=== PATIENT | male | born 1960 | race Caucasian/White ===

== ENCOUNTER 2021-08-02 21:34 | Inpatient (IN) ==
[2021-08-03] MEDS ORDERED: Melatonin 3 MG TABLET PO PRN (04:48)
[2021-08-03] MEDS ORDERED: *HR* Promethazine 25 MG/ML VIAL IM PRN (04:48)
[2021-08-03] MEDS ORDERED: Ondansetron 4 MG/2 ML VIAL IVP PRN (04:48)
[2021-08-03] MEDS ORDERED: Naloxone 0.4 MG/ML INJ IVP PRN (04:48)
[2021-08-03] MEDS ORDERED: Acetaminophen 325 MG TABLET PO PRN (04:48)
[2021-08-03] MEDS ORDERED: *HR* Dextrose 50 % in Water (Syg) 50 ML SYRINGE IVP PRN (04:50)
[2021-08-03] MEDS ORDERED: D5% in Water 1,000 ML IVC PRN (04:50)
[2021-08-03] MEDS ORDERED: Dextrose Gel 15 GM/37.5 ML TUBE PO PRN ×2 (04:50)
[2021-08-03] MEDS: Ringers Solution, Lactated 1,000 ML IVC SCH ×2 (06:41→17:26)
[2021-08-03] MEDS: Pantoprazole 40 MG VIAL IVP SCH ×2 (06:42→18:14)
[2021-08-03] MEDS: Insulin LISPRO 300 UNITS/3 ML VIAL SUBQ SCH ×4 (06:44→23:59)
[2021-08-03 07:13] LABS: Basophils % 0.2 %; Eosinophils # 0.2 K/mcL (0.0-0.6); Eosinophils % 1.6 %; Hematocrit 29.1 % (37.5-50.1); Hemoglobin 9.6 g/dL (12.9-16.9); Immature Granulocytes % 0.5 % (0-4); Lymphocytes # 1.9 K/mcL (0.6-4.6); Mean Corpuscular Hemoglobin 30.1 pg (28.0-33.3); Mean Corpuscular Volume 91.2 fL (83.0-100.0); Mean Platelet Volume 10.8 fL (9.4-12.4); Monocytes % 7.7 %; Neutrophils # 9.3 K/mcL (1.6-8.9); Nucleated Red Blood Cells 0.2 /100 WBC (0); Platelet Count 216 K/mcL (140-400); Red Blood Count 3.19 M/mcL (4.19-5.50); Red Cell Distribution Width 13.2 % (11.5-14.5); White Blood Count 12.4 K/mcL (4.3-11.1)
[2021-08-03 07:26] LABS: INR 1.2; Prothrombin Time 13.1 Seconds (9.4-12.1)
[2021-08-03] MEDS: Piperacillin/Tazobactam 3.375 GM in 0.9 % Sodium Chloride Mini Bag 100 ML IVPB SCH ×3 (08:35→23:14)
[2021-08-03 08:54] LABS: Albumin 3.6 g/dL (3.5-5.7); Albumin/Globulin Ratio 1.3 (1.1-2.2); Bilirubin,Total 0.4 mg/dL (0.3-1.0); Globulin 2.7 g/dL (2.4-3.5); Potassium 3.2 mEq/L (3.5-5.1); Total Protein 6.3 g/dL (6.4-8.9)
[2021-08-03 12:32] LABS: Bacteria,Urine Few per hpf (None-Few); Bilirubin,Urine Negative (Negative); Blood,Urine Negative (Negative); Clarity,Urine Clear (Clear); Color,Urine Light-Yellow (Yellow); Glucose,Urine (UA) Normal (Normal); Ketones,Urine Negative (Negative); Leukocyte Esterase,Urine Small (Negative); Mucus,Urine Few per lpf (None-Few); Nitrite,Urine Negative (Negative); PH,Urine 5.5 pH Units (5.0-8.0); Protein,Urine Trace mg/dL (Neg-Trace); RBC,Urine 0-3 per hpf (0-3); Urobilinogen,Urine Normal (Normal); WBC,Urine 0-3 per hpf (0-3)
[2021-08-04] MEDS: Ringers Solution, Lactated 1,000 ML IVC SCH (01:54)
[2021-08-04 05:59] LABS: Basophils % 0.4 %; Eosinophils # 0.3 K/mcL (0.0-0.6); Eosinophils % 4.5 %; Hematocrit 26.9 % (37.5-50.1); Hemoglobin 8.9 g/dL (12.9-16.9); Immature Granulocytes % 0.4 % (0-4); Lymphocytes # 1.6 K/mcL (0.6-4.6); Lymphocytes % 22.4 %; Mean Corpuscular HGB Conc 33.1 g/dL (31.6-35.5); Mean Corpuscular Hemoglobin 30.3 pg (28.0-33.3); Mean Corpuscular Volume 91.5 fL (83.0-100.0); Mean Platelet Volume 10.6 fL (9.4-12.4); Monocytes # 0.6 K/mcL (0.0-1.3); Monocytes % 8.4 %; Neutrophils # 4.7 K/mcL (1.6-8.9); Platelet Count 174 K/mcL (140-400); Red Blood Count 2.94 M/mcL (4.19-5.50); Red Cell Distribution Width 13.2 % (11.5-14.5); Segmented Neutrophils % 63.9 %; White Blood Count 7.3 K/mcL (4.3-11.1)
[2021-08-04 06:23] LABS: Calcium 8.9 mg/dL (8.6-10.3); Potassium 3.3 mEq/L (3.5-5.1)
[2021-08-04] MEDS: Insulin LISPRO 300 UNITS/3 ML VIAL SUBQ SCH ×2 (06:27→12:41)
[2021-08-04] MEDS: Pantoprazole 40 MG VIAL IVP SCH ×2 (06:35→17:26)
[2021-08-04] MEDS ORDERED: Ipratropium/Albuterol Neb 3 ML IH PRN (10:20)
[2021-08-04] MEDS ORDERED: Ringers Solution, Lactated 1,000 ML IVC SCH (10:21)
[2021-08-04] MEDS ORDERED: Lidocaine -MPF 2% 5 ML VIAL ONE (10:45)
[2021-08-04] MEDS ORDERED: *HR* FentaNYL (PF) 100 MCG/2 ML VIAL ONE (10:45)
[2021-08-04] MEDS ORDERED: *HR* Propofol 200 MG/20 ML VIAL IVP ONE (10:45)
[2021-08-04] MEDS: PARoxetine 20 MG TABLET PO SCH (12:39)
[2021-08-04] MEDS: carvediloL 6.25 MG TABLET PO SCH ×2 (12:40→17:26)
[2021-08-04] MEDS: Piperacillin/Tazobactam 3.375 GM in 0.9 % Sodium Chloride Mini Bag 100 ML IVPB SCH ×2 (12:40→17:26)
[2021-08-04] MEDS: Aspirin Enteric Coated 81 MG Tablet PO SCH (12:40)
[2021-08-04 17:40] LABS: Protein/Creatinine Ratio,Urine 0.24 mg/mg (0.00-0.20)
[2021-08-04] MEDS: 0.9 % Sodium Chloride 1,000 ML IVC SCH (23:24)
[2021-08-05 03:34] LABS: Basophils % 0.3 %; Eosinophils # 0.4 K/mcL (0.0-0.6); Eosinophils % 4.9 %; Hematocrit 24.2 % (37.5-50.1); Immature Granulocytes % 0.4 % (0-4); Lymphocytes # 1.8 K/mcL (0.6-4.6); Lymphocytes % 24.9 %; Mean Corpuscular HGB Conc 33.1 g/dL (31.6-35.5); Mean Corpuscular Hemoglobin 30.5 pg (28.0-33.3); Mean Corpuscular Volume 92.4 fL (83.0-100.0); Mean Platelet Volume 10.7 fL (9.4-12.4); Monocytes # 0.6 K/mcL (0.0-1.3); Monocytes % 8.1 %; Neutrophils # 4.4 K/mcL (1.6-8.9); Platelet Count 158 K/mcL (140-400); Red Blood Count 2.62 M/mcL (4.19-5.50); Red Cell Distribution Width 13.2 % (11.5-14.5); Segmented Neutrophils % 61.4 %; White Blood Count 7.2 K/mcL (4.3-11.1)
[2021-08-05 03:48] LABS: Calcium 8.4 mg/dL (8.6-10.3); Potassium 3.4 mEq/L (3.5-5.1)
[2021-08-05] MEDS ORDERED: Piperacillin/Tazobactam 3.375 GM in 0.9 % Sodium Chloride Mini Bag 100 ML IVPB SCH (04:00)
[2021-08-05] MEDS: Pantoprazole 40 MG VIAL IVP SCH (05:30)
[2021-08-05] MEDS ORDERED: Piperacillin/Tazobactam 3.375 GM VIAL ONE (05:36)
[2021-08-05] MEDS: Insulin LISPRO 300 UNITS/3 ML VIAL SUBQ SCH ×4 (07:48→20:06)
[2021-08-05] MEDS: carvediloL 6.25 MG TABLET PO SCH ×2 (07:54→17:28)
[2021-08-05] MEDS: NIFEdipine XL (24 HR) 30 MG TAB.ER.24 PO SCH (07:54)
[2021-08-05] MEDS: PARoxetine 20 MG TABLET PO SCH (07:55)
[2021-08-05] MEDS: Aspirin Enteric Coated 81 MG Tablet PO SCH (07:55)
[2021-08-05] MEDS ORDERED: levoFLOXacin 750 MG TABLET PO SCH (09:00)
[2021-08-05] MEDS: 0.9 % Sodium Chloride 1,000 ML IVC SCH (09:56)
[2021-08-05 16:30] LABS: Hematocrit 28.6 % (37.5-50.1); Hemoglobin 9.4 g/dL (12.9-16.9)
[2021-08-05] MEDS: *HR* Ticagrelor 90 MG TABLET PO SCH (20:08)
[2021-08-06 04:16] LABS: Estimated Average Glucose 154 mg/dl
[2021-08-06] MEDS ORDERED: *HR* Labetalol 20 MG/4 ML SYRINGE IVP ONE (06:21)
[2021-08-06 06:48] VITALS: O2SAT 95
[2021-08-06] MEDS: Insulin LISPRO 300 UNITS/3 ML VIAL SUBQ SCH ×2 (07:34→11:37)
[2021-08-06] MEDS: NIFEdipine XL (24 HR) 30 MG TAB.ER.24 PO SCH (09:30)
[2021-08-06] MEDS: carvediloL 6.25 MG TABLET PO SCH (09:30)
[2021-08-06] MEDS: Aspirin Enteric Coated 81 MG Tablet PO SCH (09:30)
[2021-08-06] MEDS: PARoxetine 20 MG TABLET PO SCH (09:30)
[2021-08-06] MEDS: *HR* Ticagrelor 90 MG TABLET PO SCH (09:40)
[2021-08-06 11:11] VITALS: BP 145/71; PULSE 69; TEMP 97.9
== END 2021-08-06 14:34 | disposition home health service (06) | DRG 241 ==
LOC: 3ANU → SUATTDRO 08-04 15:41
PROVIDERS: ADMIT Family Medicine; ATTEND Internal Medicine
PROC: ENDOEBX (2021-08-04 14:30)

== ENCOUNTER 2021-08-07 16:29 | Inpatient (IN) ==
[2021-08-07] MEDS ORDERED: 0.9 % Sodium Chloride 1,000 ML IVC ONE (16:41)
[2021-08-07 19:28] LABS: Basophils % 0.2 %; Eosinophils % 0.2 %; Hematocrit 20.4 % (37.5-50.1); Lymphocytes # 1.7 K/mcL (0.6-4.6); Lymphocytes % 9.9 %; Mean Corpuscular HGB Conc 33.8 g/dL (31.6-35.5); Mean Corpuscular Hemoglobin 31.2 pg (28.0-33.3); Mean Corpuscular Volume 92.3 fL (83.0-100.0); Mean Platelet Volume 10.9 fL (9.4-12.4); Monocytes % 5.5 %; Neutrophils # 14.5 K/mcL (1.6-8.9); Nucleated Red Blood Cells 0.2 /100 WBC (0); Platelet Count 210 K/mcL (140-400); Red Blood Count 2.21 M/mcL (4.19-5.50); Red Cell Distribution Width 13.8 % (11.5-14.5); Segmented Neutrophils % 82.2 %
[2021-08-07 19:32] LABS: Hemoglobin 6.9 g/dL (12.9-16.9); White Blood Count 17.6 K/mcL (4.3-11.1)
[2021-08-07 19:42] LABS: INR 1.2; Prothrombin Time 13.7 Seconds (9.4-12.1)
[2021-08-07 19:45] LABS: Activated Partial Thrombo Time 25.1 Seconds (26.0-36.0)
[2021-08-07 19:56] LABS: Troponin I 0.05 ng/mL (< 0.04)
[2021-08-07 20:05] LABS: Albumin 3.3 g/dL (3.5-5.7); Albumin/Globulin Ratio 1.4 (1.1-2.2); Bilirubin,Total 0.3 mg/dL (0.3-1.0); Calcium 8.3 mg/dL (8.6-10.3); Globulin 2.3 g/dL (2.4-3.5); Magnesium 1.5 mg/dL (1.6-2.6); Potassium 3.7 mEq/L (3.5-5.1); Total Protein 5.6 g/dL (6.4-8.9)
[2021-08-07] MEDS ORDERED: Isovue-370 500 ML BOTTLE IVP ONE (20:21)
[2021-08-07] MEDS ORDERED: 0.9 % Sodium Chloride 250 ML ONE (20:44)
[2021-08-07] MEDS ORDERED: Ringers Solution, Lactated 1,000 ML ONE (21:41)
[2021-08-07] MEDS ORDERED: Albumin Human 5% 12.5 GM/250 ML IV.SOLN IVC SCH (22:00)
[2021-08-07] MEDS ORDERED: Naloxone 0.4 MG/ML INJ IVP PRN (22:10)
[2021-08-07] MEDS ORDERED: Melatonin 3 MG TABLET PO PRN (22:10)
[2021-08-07] MEDS ORDERED: Ringers Solution, Lactated 500 ML IVC ONE (22:41)
[2021-08-07 22:43] LABS: Hematocrit 19.7 % (37.5-50.1); Hemoglobin 6.5 g/dL (12.9-16.9); Mean Corpuscular Hemoglobin 30.5 pg (28.0-33.3); Mean Corpuscular Volume 92.5 fL (83.0-100.0); Mean Platelet Volume 10.4 fL (9.4-12.4); Platelet Count 173 K/mcL (140-400); Red Blood Count 2.13 M/mcL (4.19-5.50); Red Cell Distribution Width 14.6 % (11.5-14.5); White Blood Count 18.9 K/mcL (4.3-11.1)
[2021-08-07 22:51] LABS: INR 1.3
[2021-08-07 22:53] LABS: Activated Partial Thrombo Time 26.5 Seconds (26.0-36.0)
[2021-08-07] MEDS ORDERED: *HR* Propofol 200 MG/20 ML VIAL IVP ONE (23:00)
[2021-08-07] MEDS ORDERED: *HR* Midazolam HCl 2 MG/2 ML VIAL ONE (23:00)
[2021-08-07] MEDS ORDERED: Lidocaine -MPF 2% 5 ML VIAL ONE (23:01)
[2021-08-07] MEDS ORDERED: *HR* Succinylcholine 200 MG/10 ML VIAL IVP ONE (23:04)
[2021-08-07] MEDS ORDERED: *HR* Midazolam HCl 5 MG/5 ML VIAL IVP ONE (23:05)
[2021-08-07] MEDS ORDERED: *HR* Dextrose 50 % in Water (Syg) 50 ML SYRINGE IVP PRN (23:11)
[2021-08-07] MEDS ORDERED: D5% in Water 1,000 ML IVC PRN (23:11)
[2021-08-07] MEDS ORDERED: Dextrose Gel 15 GM/37.5 ML TUBE PO PRN ×2 (23:11)
[2021-08-07 23:23] LABS: Troponin I 0.06 ng/mL (< 0.04)
[2021-08-07] MEDS ORDERED: *HR* Rocuronium Bromide 50 MG/5 ML VIAL ONE (23:45)
[2021-08-07 23:54] LABS: Albumin/Globulin Ratio 1.8 (1.1-2.2); Bilirubin,Direct 0.1 mg/dL (0.0-0.2); Bilirubin,Indirect 0.2 mg/dL (0.0-1.0); Bilirubin,Total 0.3 mg/dL (0.3-1.0); Calcium 7.6 mg/dL (8.6-10.3); Globulin 1.7 g/dL (2.4-3.5); Potassium 3.6 mEq/L (3.5-5.1); Total Protein 4.7 g/dL (6.4-8.9)
[2021-08-08] MEDS ORDERED: *HR* HYDROMORPHONE 2 MG/ML VIAL ONE (00:12)
[2021-08-08] MEDS ORDERED: Artificial Tears SOLN 15 ML BOTTLE BOTH EYES PRN (00:26)
[2021-08-08] MEDS ORDERED: 0.9 % Sodium Chloride 500 ML ONE (00:34)
[2021-08-08 01:01] LABS: Hematocrit 18.9 % (37.5-50.1); Hemoglobin 6.4 g/dL (12.9-16.9); Mean Corpuscular HGB Conc 33.9 g/dL (31.6-35.5); Mean Corpuscular Hemoglobin 31.2 pg (28.0-33.3); Mean Corpuscular Volume 92.2 fL (83.0-100.0); Platelet Count 150 K/mcL (140-400); Red Blood Count 2.05 M/mcL (4.19-5.50); Red Cell Distribution Width 14.6 % (11.5-14.5); White Blood Count 17.1 K/mcL (4.3-11.1)
[2021-08-08] MEDS: FentaNYL (PF) 1,000 MCG/100 ML IV.SOLN IVC SCH ×2 (01:09→10:12)
[2021-08-08] MEDS: Pantoprazole 40 MG VIAL IVP SCH ×2 (01:30→05:05)
[2021-08-08] MEDS: cefTRIAXone 1,000 MG in 0.9 % Sodium Chloride Mini Bag 100 ML IVPB SCH ×2 (01:30→07:45)
[2021-08-08 02:37] LABS: ABG Base Excess -4 mEq/L (-2 to 3); ABG HCO3 23 mEq/L (21-27); ABG Oxygen Saturation 100 % (95-98); ABG PCO2 52 mmHg (35-45); ABG PH 7.26 pH Units (7.32-7.45); ABG PO2 343 mmHg (85-104); ABG TCO2 25 mEq/L (20-26); Blood Gas Modality ASSIST CONTROL; Blood Gas VT 500 cc
[2021-08-08] MEDS: Artificial Tears SOLN 15 ML BOTTLE BOTH EYES SCH ×5 (03:03→20:43)
[2021-08-08 03:48] LABS: Basophils % 0.2 %; Eosinophils % 0.1 %; Hematocrit 22.3 % (37.5-50.1); Hemoglobin 7.3 g/dL (12.9-16.9); Immature Granulocytes % 2.9 % (0-4); Lymphocytes # 1.5 K/mcL (0.6-4.6); Lymphocytes % 8.9 %; Mean Corpuscular HGB Conc 32.7 g/dL (31.6-35.5); Mean Corpuscular Volume 91.8 fL (83.0-100.0); Mean Platelet Volume 10.2 fL (9.4-12.4); Monocytes # 1.1 K/mcL (0.0-1.3); Monocytes % 6.1 %; Neutrophils # 14.1 K/mcL (1.6-8.9); Nucleated Red Blood Cells 0.2 /100 WBC (0); Platelet Count 130 K/mcL (140-400); Red Blood Count 2.43 M/mcL (4.19-5.50); Red Cell Distribution Width 14.4 % (11.5-14.5); Segmented Neutrophils % 81.8 %; White Blood Count 17.2 K/mcL (4.3-11.1)
[2021-08-08 04:06] LABS: Calcium 7.7 mg/dL (8.6-10.3)
[2021-08-08 04:49] LABS: ABG Base Excess -5 mEq/L (-2 to 3); ABG HCO3 21 mEq/L (21-27); ABG Oxygen Saturation 97 % (95-98); ABG PCO2 39 mmHg (35-45); ABG PH 7.34 pH Units (7.32-7.45); ABG PO2 97 mmHg (85-104); ABG TCO2 22 mEq/L (20-26); Blood Gas Modality ASSIST CONTROL; Blood Gas VT 550 cc
[2021-08-08 05:42] LABS: Hematocrit 21.4 % (37.5-50.1)
[2021-08-08] MEDS: Chlorhexidine Rinse 15 ML MOUTHWASH MM SCH ×2 (07:45→20:43)
[2021-08-08] MEDS: Insulin LISPRO 300 UNITS/3 ML VIAL SUBQ SCH ×5 (07:58→20:44)
[2021-08-08] MEDS: Piperacillin/Tazobactam 3.375 GM in 0.9 % Sodium Chloride Mini Bag 100 ML IVPB SCH ×3 (09:30→23:47)
[2021-08-08 10:39] LABS: Hematocrit 20.4 % (37.5-50.1); Hemoglobin 6.7 g/dL (12.9-16.9)
[2021-08-08] MEDS: Pantoprazole 40 MG in 0.9 % Sodium Chloride Mini Bag 100 ML IVC SCH ×3 (13:21→23:36)
[2021-08-08 16:09] LABS: Hematocrit 20.5 % (37.5-50.1); Hemoglobin 6.9 g/dL (12.9-16.9)
[2021-08-08 20:27] LABS: Basophils # 0.1 K/mcL (0.0-0.2); Basophils % 0.4 %; Eosinophils # 0.5 K/mcL (0.0-0.6); Eosinophils % 3.7 %; Hematocrit 22.1 % (37.5-50.1); Hemoglobin 7.5 g/dL (12.9-16.9); Immature Granulocytes % 2.4 % (0-4); Lymphocytes # 2.4 K/mcL (0.6-4.6); Lymphocytes % 16.8 %; Mean Corpuscular HGB Conc 33.9 g/dL (31.6-35.5); Mean Corpuscular Hemoglobin 30.6 pg (28.0-33.3); Mean Corpuscular Volume 90.2 fL (83.0-100.0); Mean Platelet Volume 10.3 fL (9.4-12.4); Monocytes % 6.8 %; Nucleated Red Blood Cells 0.3 /100 WBC (0); Platelet Count 109 K/mcL (140-400); Red Blood Count 2.45 M/mcL (4.19-5.50); Red Cell Distribution Width 14.9 % (11.5-14.5); Segmented Neutrophils % 69.9 %; White Blood Count 14.3 K/mcL (4.3-11.1)
[2021-08-08] MEDS ORDERED: Insulin LISPRO 300 UNITS/3 ML VIAL SUBQ SCH (21:00)
[2021-08-09] MEDS: FentaNYL (PF) 1,000 MCG/100 ML IV.SOLN IVC SCH (01:01)
[2021-08-09] MEDS: Insulin LISPRO 300 UNITS/3 ML VIAL SUBQ SCH ×6 (03:09→21:49)
[2021-08-09 04:20] LABS: ABG Base Excess -4 mEq/L (-2 to 3); ABG HCO3 20 mEq/L (21-27); ABG Oxygen Saturation 97 % (95-98); ABG PCO2 29 mmHg (35-45); ABG PH 7.44 pH Units (7.32-7.45); ABG PO2 89 mmHg (85-104); ABG TCO2 21 mEq/L (20-26); Blood Gas Modality ASSIST CONTROL; Blood Gas VT 550 cc
[2021-08-09 04:51] LABS: Basophils % 0.2 %; Eosinophils # 0.6 K/mcL (0.0-0.6); Eosinophils % 4.5 %; Hematocrit 21.6 % (37.5-50.1); Hemoglobin 7.3 g/dL (12.9-16.9); Immature Granulocytes % 1.9 % (0-4); Lymphocytes # 2.1 K/mcL (0.6-4.6); Mean Corpuscular HGB Conc 33.8 g/dL (31.6-35.5); Mean Corpuscular Hemoglobin 30.9 pg (28.0-33.3); Mean Corpuscular Volume 91.5 fL (83.0-100.0); Mean Platelet Volume 10.9 fL (9.4-12.4); Monocytes # 0.8 K/mcL (0.0-1.3); Monocytes % 5.9 %; Neutrophils # 9.2 K/mcL (1.6-8.9); Nucleated Red Blood Cells 0.4 /100 WBC (0); Platelet Count 117 K/mcL (140-400); Red Blood Count 2.36 M/mcL (4.19-5.50); Red Cell Distribution Width 15.3 % (11.5-14.5); Segmented Neutrophils % 71.5 %; White Blood Count 12.9 K/mcL (4.3-11.1)
[2021-08-09 05:01] LABS: Potassium 3.2 mEq/L (3.5-5.1)
[2021-08-09] MEDS: Pantoprazole 40 MG in 0.9 % Sodium Chloride Mini Bag 100 ML IVC SCH ×4 (05:34→19:51)
[2021-08-09] MEDS: Artificial Tears SOLN 15 ML BOTTLE BOTH EYES SCH ×3 (05:38→08:01)
[2021-08-09] MEDS: Piperacillin/Tazobactam 3.375 GM in 0.9 % Sodium Chloride Mini Bag 100 ML IVPB SCH ×2 (08:00→16:16)
[2021-08-09] MEDS: Chlorhexidine Rinse 15 ML MOUTHWASH MM SCH (08:00)
[2021-08-09 08:37] LABS: Magnesium 2.2 mg/dL (1.6-2.6)
[2021-08-09 10:40] LABS: Hematocrit 24.2 % (37.5-50.1); Hemoglobin 7.9 g/dL (12.9-16.9)
[2021-08-09 16:42] LABS: Hematocrit 20.6 % (37.5-50.1); Hemoglobin 6.7 g/dL (12.9-16.9)
[2021-08-09] MEDS ORDERED: Ondansetron 4 MG/2 ML VIAL IVP PRN (17:33)
[2021-08-09] MEDS ORDERED: 0.9 % Sodium Chloride 250 ML ONE (18:04)
[2021-08-09 22:25] LABS: Hematocrit 20.5 % (37.5-50.1); Hemoglobin 6.7 g/dL (12.9-16.9)
[2021-08-10] MEDS: Pantoprazole 40 MG in 0.9 % Sodium Chloride Mini Bag 100 ML IVC SCH ×5 (01:00→21:13)
[2021-08-10] MEDS: Insulin LISPRO 300 UNITS/3 ML VIAL SUBQ SCH ×6 (01:28→19:30)
[2021-08-10] MEDS: Piperacillin/Tazobactam 3.375 GM in 0.9 % Sodium Chloride Mini Bag 100 ML IVPB SCH ×4 (01:29→23:26)
[2021-08-10 04:04] LABS: Basophils % 0.3 %; Eosinophils # 0.3 K/mcL (0.0-0.6); Eosinophils % 2.3 %; Hematocrit 19.4 % (37.5-50.1); Hemoglobin 6.2 g/dL (12.9-16.9); Immature Granulocytes % 1.5 % (0-4); Lymphocytes # 1.3 K/mcL (0.6-4.6); Lymphocytes % 10.7 %; Mean Corpuscular Hemoglobin 30.4 pg (28.0-33.3); Mean Corpuscular Volume 95.1 fL (83.0-100.0); Mean Platelet Volume 10.8 fL (9.4-12.4); Monocytes # 0.8 K/mcL (0.0-1.3); Monocytes % 6.7 %; Neutrophils # 9.7 K/mcL (1.6-8.9); Nucleated Red Blood Cells 0.7 /100 WBC (0); Platelet Count 141 K/mcL (140-400); Red Blood Count 2.04 M/mcL (4.19-5.50); Segmented Neutrophils % 78.5 %; White Blood Count 12.3 K/mcL (4.3-11.1)
[2021-08-10 04:24] LABS: Albumin 2.7 g/dL (3.5-5.7); Albumin/Globulin Ratio 1.5 (1.1-2.2); Bilirubin,Direct 0.1 mg/dL (0.0-0.2); Bilirubin,Indirect 0.2 mg/dL (0.0-1.0); Bilirubin,Total 0.3 mg/dL (0.3-1.0); Calcium 7.7 mg/dL (8.6-10.3); Globulin 1.8 g/dL (2.4-3.5); Magnesium 2.1 mg/dL (1.6-2.6); Phosphorous 4.5 mg/dL (2.7-4.5); Potassium 3.6 mEq/L (3.5-5.1); Total Protein 4.5 g/dL (6.4-8.9)
[2021-08-10 04:56] LABS: VBG Ionized Calcium 1.15 mmol/L (1.15-1.35)
[2021-08-10] MEDS ORDERED: 0.9 % Sodium Chloride 250 ML IVC SCH (05:00)
[2021-08-10] MEDS ORDERED: Potassium Chloride 40 MEQ/200 ML BAG IVPB PRN (08:11)
[2021-08-10] MEDS ORDERED: Potassium Phosphate 44 MEQ in 0.9 % Sodium Chloride 250 ML IVPB PRN (08:11)
[2021-08-10] MEDS ORDERED: Calcium Gluconate 1gm/50mL 1 GM/50 ML BAG IVPB PRN (08:11)
[2021-08-10 10:56] LABS: Hematocrit 21.4 % (37.5-50.1); Hemoglobin 6.9 g/dL (12.9-16.9)
[2021-08-10 15:21] LABS: Hematocrit 25.7 % (37.5-50.1); Hemoglobin 8.3 g/dL (12.9-16.9)
[2021-08-10] MEDS ORDERED: SODIUM CHLORIDE/NAHCO3/KCL/PEG 4,000 ML SOLN.RECON PO ONE (17:00)
[2021-08-10] MEDS ORDERED: *HR* Metoprolol 5 MG/5 ML VIAL IVP STA (19:47)
[2021-08-10] MEDS ORDERED: *HR* Metoprolol 5 MG/5 ML VIAL IVP ONE (19:49)
[2021-08-10 21:01] LABS: Hematocrit 23.4 % (37.5-50.1); Hemoglobin 7.6 g/dL (12.9-16.9)
[2021-08-10] MEDS ORDERED: DilTIAZem 50 MG in 0.9 % Sodium Chloride 40 ML IVC SCH (21:15)
[2021-08-10] MEDS: niCARdipine 20 MG/200 ML MLS IVC SCH (22:52)
[2021-08-10] MEDS: *HR* Metoprolol 5 MG/5 ML VIAL IVP SCH (23:25)
[2021-08-11] MEDS: Insulin LISPRO 300 UNITS/3 ML VIAL SUBQ SCH ×7 (00:06→21:14)
[2021-08-11] MEDS: niCARdipine 20 MG/200 ML MLS IVC SCH ×5 (02:11→10:53)
[2021-08-11] MEDS: Pantoprazole 40 MG in 0.9 % Sodium Chloride Mini Bag 100 ML IVC SCH ×2 (02:23→07:33)
[2021-08-11 03:32] LABS: Basophils # 0.1 K/mcL (0.0-0.2); Basophils % 0.4 %; Eosinophils # 0.1 K/mcL (0.0-0.6); Eosinophils % 0.4 %; Hematocrit 23.5 % (37.5-50.1); Hemoglobin 7.2 g/dL (12.9-16.9); Immature Granulocytes % 3.7 % (0-4); Lymphocytes # 1.8 K/mcL (0.6-4.6); Lymphocytes % 8.8 %; Mean Corpuscular HGB Conc 30.6 g/dL (31.6-35.5); Mean Corpuscular Volume 94.8 fL (83.0-100.0); Mean Platelet Volume 10.3 fL (9.4-12.4); Monocytes # 1.5 K/mcL (0.0-1.3); Monocytes % 7.6 %; Nucleated Red Blood Cells 1.3 /100 WBC (0); Platelet Count 160 K/mcL (140-400); Red Blood Count 2.48 M/mcL (4.19-5.50); Red Cell Distribution Width 18.4 % (11.5-14.5); Segmented Neutrophils % 79.1 %
[2021-08-11 03:35] LABS: VBG Ionized Calcium 1.22 mmol/L (1.15-1.35)
[2021-08-11 03:44] LABS: Neutrophils # 15.7 K/mcL (1.6-8.9); White Blood Count 19.9 K/mcL (4.3-11.1)
[2021-08-11 03:53] LABS: Albumin/Globulin Ratio 1.4 (1.1-2.2); Bilirubin,Direct 0.1 mg/dL (0.0-0.2); Bilirubin,Indirect 0.3 mg/dL (0.0-1.0); Bilirubin,Total 0.4 mg/dL (0.3-1.0); Calcium 8.2 mg/dL (8.6-10.3); Globulin 2.1 g/dL (2.4-3.5); Magnesium 2.1 mg/dL (1.6-2.6); Phosphorous 3.2 mg/dL (2.7-4.5); Potassium 3.6 mEq/L (3.5-5.1); Total Protein 5.1 g/dL (6.4-8.9)
[2021-08-11] MEDS: *HR* Metoprolol 5 MG/5 ML VIAL IVP SCH ×2 (05:12→12:01)
[2021-08-11] MEDS ORDERED: D5% in 0.45% NACL 1,000 ML IVC SCH ×2 (06:00→12:08)
[2021-08-11] MEDS: Piperacillin/Tazobactam 3.375 GM in 0.9 % Sodium Chloride Mini Bag 100 ML IVPB SCH ×2 (07:48→16:12)
[2021-08-11 10:40] LABS: Hematocrit 20.5 % (37.5-50.1); Hemoglobin 6.5 g/dL (12.9-16.9)
[2021-08-11 11:00] LABS: Calcium 8.2 mg/dL (8.6-10.3); Potassium 3.4 mEq/L (3.5-5.1)
[2021-08-11] MEDS ORDERED: Iron Sucrose Complex 200 MG in 0.9 % Sodium Chloride 100 ML IVPB ONE (11:15)
[2021-08-11] MEDS ORDERED: Ondansetron 4 MG/2 ML VIAL IVP PRN (12:08)
[2021-08-11] MEDS ORDERED: Dextrose Gel 15 GM/37.5 ML TUBE PO PRN ×2 (12:08)
[2021-08-11] MEDS ORDERED: 0.9 % Sodium Chloride 250 ML IVC SCH (12:08)
[2021-08-11] MEDS ORDERED: Melatonin 3 MG TABLET PO PRN (12:08)
[2021-08-11] MEDS ORDERED: Calcium Gluconate 1gm/50mL 1 GM/50 ML BAG IVPB PRN (12:08)
[2021-08-11] MEDS ORDERED: *HR* Dextrose 50 % in Water (Syg) 50 ML SYRINGE IVP PRN (12:08)
[2021-08-11] MEDS ORDERED: D5% in Water 1,000 ML IVC PRN (12:08)
[2021-08-11] MEDS ORDERED: Naloxone 0.4 MG/ML INJ IVP PRN (12:08)
[2021-08-11] MEDS: NIFEdipine XL (24 HR) 30 MG TAB.ER.24 PO SCH (14:21)
[2021-08-11] MEDS: carvediloL 6.25 MG TABLET PO SCH ×2 (14:22→18:15)
[2021-08-11] MEDS ORDERED: Pantoprazole 40 MG VIAL IVP SCH (18:00)
[2021-08-11] MEDS ORDERED: D5 IV SCH (18:15)
[2021-08-11] MEDS ORDERED: NACL 0.2% IV SCH (18:15)
[2021-08-11] MEDS: Pantoprazole 40 MG VIAL IVP SCH (18:22)
[2021-08-11 20:55] LABS: Hematocrit 18.3 % (37.5-50.1)
[2021-08-11 21:00] LABS: Hemoglobin 5.9 g/dL (12.9-16.9)
[2021-08-11] MEDS ORDERED: carvediloL 6.25 MG TABLET PO SCH (21:00)
[2021-08-11] MEDS ORDERED: 0.9 % Sodium Chloride 250 ML ONE (23:03)
[2021-08-12] MEDS: Piperacillin/Tazobactam 3.375 GM in 0.9 % Sodium Chloride Mini Bag 100 ML IVPB SCH ×4 (00:08→23:27)
[2021-08-12 03:19] LABS: Basophils % 0.3 %; Eosinophils # 0.3 K/mcL (0.0-0.6); Eosinophils % 2.2 %; Hematocrit 21.3 % (37.5-50.1); Hemoglobin 6.8 g/dL (12.9-16.9); Immature Granulocytes % 2.9 % (0-4); Lymphocytes # 2.1 K/mcL (0.6-4.6); Lymphocytes % 13.8 %; Mean Corpuscular HGB Conc 31.9 g/dL (31.6-35.5); Mean Corpuscular Hemoglobin 30.4 pg (28.0-33.3); Mean Corpuscular Volume 95.1 fL (83.0-100.0); Mean Platelet Volume 10.1 fL (9.4-12.4); Monocytes # 1.2 K/mcL (0.0-1.3); Monocytes % 7.5 %; Neutrophils # 11.3 K/mcL (1.6-8.9); Nucleated Red Blood Cells 2.1 /100 WBC (0); Platelet Count 127 K/mcL (140-400); Red Blood Count 2.24 M/mcL (4.19-5.50); Red Cell Distribution Width 17.8 % (11.5-14.5); Segmented Neutrophils % 73.3 %; White Blood Count 15.4 K/mcL (4.3-11.1)
[2021-08-12] MEDS: Insulin LISPRO 300 UNITS/3 ML VIAL SUBQ SCH ×6 (03:22→23:20)
[2021-08-12 03:50] LABS: Albumin 3.1 g/dL (3.5-5.7); Albumin/Globulin Ratio 1.6 (1.1-2.2); Bilirubin,Total 0.6 mg/dL (0.3-1.0); Calcium 8.6 mg/dL (8.6-10.3); Globulin 1.9 g/dL (2.4-3.5); Potassium 3.3 mEq/L (3.5-5.1)
[2021-08-12] MEDS: Pantoprazole 40 MG VIAL IVP SCH ×2 (05:45→18:17)
[2021-08-12] MEDS: PARoxetine 20 MG TABLET PO SCH (08:12)
[2021-08-12] MEDS: carvediloL 6.25 MG TABLET PO SCH ×2 (08:12→16:08)
[2021-08-12] MEDS: NIFEdipine XL (24 HR) 30 MG TAB.ER.24 PO SCH (08:12)
[2021-08-12] MEDS ORDERED: NIFEdipine XL (24 HR) 30 MG TAB.ER.24 PO SCH (09:00)
[2021-08-12] MEDS ORDERED: PARoxetine 20 MG TABLET PO SCH (09:00)
[2021-08-12 13:13] LABS: Hematocrit 20.9 % (37.5-50.1); Hemoglobin 6.5 g/dL (12.9-16.9)
[2021-08-12] MEDS ORDERED: Potassium Chloride Elixir 20 MEQ/15 ML UDC PO ONE (14:42)
[2021-08-12] MEDS ORDERED: 0.9 % Sodium Chloride 250 ML IVC SCH (15:30)
[2021-08-12] MEDS: D5% in Water 1,000 ML IVC SCH ×2 (16:11→21:15)
[2021-08-12 17:12] LABS: Amorphous Sediment,Urine Few per hpf (None-Few); Bilirubin,Urine Negative (Negative); Blood,Urine Small (Negative); Clarity,Urine Clear (Clear); Color,Urine Colorless (Yellow); Glucose,Urine (UA) 70 mg/dL (Normal); Ketones,Urine Negative (Negative); Leukocyte Esterase,Urine Trace (Negative); Mucus,Urine Few per lpf (None-Few); Nitrite,Urine Negative (Negative); Protein,Urine Trace mg/dL (Neg-Trace); RBC,Urine 30-50 per hpf (0-3); Specific Gravity,Urine 1.011 (1.010-1.025); Squamous Epithelial Cell,Urine Few per hpf (None-Few); Urobilinogen,Urine Normal (Normal)
[2021-08-12 21:17] LABS: Sodium, Urine 133.2 mEq/L
[2021-08-12 21:22] LABS: Hematocrit 22.1 % (37.5-50.1); Hemoglobin 7.1 g/dL (12.9-16.9)
[2021-08-12 21:53] LABS: Calcium 8.1 mg/dL (8.6-10.3); Potassium 3.6 mEq/L (3.5-5.1)
[2021-08-13 03:20] LABS: Basophils # 0.1 K/mcL (0.0-0.2); Basophils % 0.4 %; Eosinophils # 0.6 K/mcL (0.0-0.6); Eosinophils % 5.1 %; Hematocrit 21.8 % (37.5-50.1); Immature Granulocytes % 1.8 % (0-4); Lymphocytes # 2.8 K/mcL (0.6-4.6); Lymphocytes % 23.6 %; Mean Corpuscular HGB Conc 32.1 g/dL (31.6-35.5); Mean Corpuscular Hemoglobin 30.2 pg (28.0-33.3); Mean Platelet Volume 10.5 fL (9.4-12.4); Monocytes # 0.9 K/mcL (0.0-1.3); Monocytes % 7.4 %; Neutrophils # 7.3 K/mcL (1.6-8.9); Nucleated Red Blood Cells 1.1 /100 WBC (0); Platelet Count 116 K/mcL (140-400); Red Blood Count 2.32 M/mcL (4.19-5.50); Red Cell Distribution Width 17.4 % (11.5-14.5); Segmented Neutrophils % 61.7 %; White Blood Count 11.8 K/mcL (4.3-11.1)
[2021-08-13] MEDS: Insulin LISPRO 300 UNITS/3 ML VIAL SUBQ SCH ×4 (05:26→17:16)
[2021-08-13 05:33] LABS: Hematocrit 23.6 % (37.5-50.1); Hemoglobin 7.5 g/dL (12.9-16.9)
[2021-08-13] MEDS: Pantoprazole 40 MG VIAL IVP SCH ×2 (05:39→17:22)
[2021-08-13] MEDS: D5% in Water 1,000 ML IVC SCH ×2 (05:40→14:00)
[2021-08-13 08:06] LABS: Magnesium 1.7 mg/dL (1.6-2.6); Potassium 3.3 mEq/L (3.5-5.1)
[2021-08-13] MEDS: Piperacillin/Tazobactam 3.375 GM in 0.9 % Sodium Chloride Mini Bag 100 ML IVPB SCH ×2 (08:57→17:22)
[2021-08-13] MEDS: NIFEdipine XL (24 HR) 30 MG TAB.ER.24 PO SCH (08:58)
[2021-08-13] MEDS: PARoxetine 20 MG TABLET PO SCH (08:58)
[2021-08-13] MEDS: carvediloL 6.25 MG TABLET PO SCH ×2 (08:59→17:21)
[2021-08-13] MEDS ORDERED: Potassium Chloride Elixir 20 MEQ/15 ML UDC PO ONE (12:11)
[2021-08-13] MEDS: Melatonin 3 MG TABLET PO SCH ×2 (20:02→23:21)
[2021-08-13 20:28] LABS: BUN/Creatinine Ratio 15 (6-26); Blood Urea Nitrogen 21 mg/dL (8-23); Calcium 7.9 mg/dL (8.6-10.3); Carbon Dioxide 24 mEq/L (23-29); Chloride 114 mEq/L (98-107); Glucose 152 mg/dL (70-105); Osmolality,Calculated 304 (280-300); Potassium 3.2 mEq/L (3.5-5.1); Sodium 144 mEq/L (136-145); eGFR For African Americans > 60 (> 60); eGFR For Non-African Americans 51 (> 60)
[2021-08-14 01:31] LABS: Basophils % 0.4 %; Eosinophils # 0.6 K/mcL (0.0-0.6); Eosinophils % 5.6 %; Hematocrit 25.4 % (37.5-50.1); Hemoglobin 8.2 g/dL (12.9-16.9); Immature Granulocytes % 1.5 % (0-4); Lymphocytes # 2.4 K/mcL (0.6-4.6); Lymphocytes % 23.4 %; Mean Corpuscular HGB Conc 32.3 g/dL (31.6-35.5); Mean Corpuscular Hemoglobin 30.5 pg (28.0-33.3); Mean Corpuscular Volume 94.4 fL (83.0-100.0); Mean Platelet Volume 10.3 fL (9.4-12.4); Monocytes # 0.8 K/mcL (0.0-1.3); Monocytes % 7.5 %; Neutrophils # 6.3 K/mcL (1.6-8.9); Nucleated Red Blood Cells 0.4 /100 WBC (0); Platelet Count 133 K/mcL (140-400); Red Blood Count 2.69 M/mcL (4.19-5.50); Red Cell Distribution Width 18.2 % (11.5-14.5); Segmented Neutrophils % 61.6 %; White Blood Count 10.3 K/mcL (4.3-11.1)
[2021-08-14 01:39] LABS: BUN/Creatinine Ratio 14 (6-26); Blood Urea Nitrogen 19 mg/dL (8-23); Carbon Dioxide 24 mEq/L (23-29); Chloride 114 mEq/L (98-107); Glucose 112 mg/dL (70-105); Magnesium 1.5 mg/dL (1.6-2.6); Osmolality,Calculated 301 (280-300); Potassium 3.2 mEq/L (3.5-5.1); Sodium 144 mEq/L (136-145); eGFR For African Americans > 60 (> 60); eGFR For Non-African Americans 52 (> 60)
[2021-08-14] MEDS: Piperacillin/Tazobactam 3.375 GM in 0.9 % Sodium Chloride Mini Bag 100 ML IVPB SCH ×3 (03:52→20:09)
[2021-08-14] MEDS: Pantoprazole 40 MG VIAL IVP SCH (05:47)
[2021-08-14] MEDS: D5% in Water 1,000 ML IVC SCH ×2 (06:31→20:09)
[2021-08-14] MEDS ORDERED: Potassium Chloride Elixir 20 MEQ/15 ML UDC PO ONE (07:31)
[2021-08-14] MEDS: Insulin LISPRO 300 UNITS/3 ML VIAL SUBQ SCH ×3 (09:02→18:15)
[2021-08-14] MEDS: PARoxetine 20 MG TABLET PO SCH (09:12)
[2021-08-14] MEDS: carvediloL 6.25 MG TABLET PO SCH ×2 (09:12→17:17)
[2021-08-14] MEDS: NIFEdipine XL (24 HR) 30 MG TAB.ER.24 PO SCH (09:12)
[2021-08-14] MEDS: Melatonin 3 MG TABLET PO SCH (20:10)
[2021-08-15] MEDS: Insulin LISPRO 300 UNITS/3 ML VIAL SUBQ SCH ×3 (08:50→16:46)
[2021-08-15] MEDS: NIFEdipine XL (24 HR) 30 MG TAB.ER.24 PO SCH (09:00)
[2021-08-15] MEDS: PARoxetine 20 MG TABLET PO SCH (09:00)
[2021-08-15] MEDS: carvediloL 6.25 MG TABLET PO SCH ×2 (09:00→16:34)
[2021-08-15] MEDS: D5% in Water 1,000 ML IVC SCH (10:21)
[2021-08-15 19:03] LABS: BUN/Creatinine Ratio 9 (6-26); Blood Urea Nitrogen 9 mg/dL (8-23); Calcium 8.2 mg/dL (8.6-10.3); Carbon Dioxide 28 mEq/L (23-29); Chloride 107 mEq/L (98-107); Glucose 131 mg/dL (70-105); Magnesium 1.6 mg/dL (1.6-2.6); Osmolality,Calculated 288 (280-300); Sodium 139 mEq/L (136-145); eGFR For African Americans > 60 (> 60); eGFR For Non-African Americans > 60 (> 60)
[2021-08-15] MEDS: Melatonin 3 MG TABLET PO SCH (21:39)
[2021-08-16] MEDS: Insulin LISPRO 300 UNITS/3 ML VIAL SUBQ SCH ×3 (07:31→17:10)
[2021-08-16 08:53] LABS: Basophils % 0.2 %; Eosinophils # 0.4 K/mcL (0.0-0.6); Eosinophils % 4.4 %; Hematocrit 26.5 % (37.5-50.1); Hemoglobin 8.8 g/dL (12.9-16.9); Immature Granulocytes % 1.1 % (0-4); Lymphocytes # 1.3 K/mcL (0.6-4.6); Lymphocytes % 14.3 %; Mean Corpuscular HGB Conc 33.2 g/dL (31.6-35.5); Mean Corpuscular Hemoglobin 30.3 pg (28.0-33.3); Mean Corpuscular Volume 91.4 fL (83.0-100.0); Mean Platelet Volume 10.8 fL (9.4-12.4); Monocytes # 0.5 K/mcL (0.0-1.3); Monocytes % 6.1 %; Neutrophils # 6.5 K/mcL (1.6-8.9); Nucleated Red Blood Cells 0.6 /100 WBC (0); Platelet Count 129 K/mcL (140-400); Red Cell Distribution Width 17.5 % (11.5-14.5); Segmented Neutrophils % 73.9 %; White Blood Count 8.9 K/mcL (4.3-11.1)
[2021-08-16 09:09] LABS: Albumin 3.1 g/dL (3.5-5.7); BUN/Creatinine Ratio 9 (6-26); Blood Urea Nitrogen 9 mg/dL (8-23); Calcium 8.2 mg/dL (8.6-10.3); Carbon Dioxide 25 mEq/L (23-29); Chloride 106 mEq/L (98-107); Glucose 94 mg/dL (70-105); Magnesium 1.6 mg/dL (1.6-2.6); Osmolality,Calculated 288 (280-300); Phosphorous 2.8 mg/dL (2.7-4.5); Sodium 140 mEq/L (136-145); eGFR For African Americans > 60 (> 60); eGFR For Non-African Americans > 60 (> 60)
[2021-08-16 09:10] LABS: BUN/Creatinine Ratio 9 (6-26); Blood Urea Nitrogen 9 mg/dL (8-23); Calcium 8.3 mg/dL (8.6-10.3); Carbon Dioxide 26 mEq/L (23-29); Chloride 106 mEq/L (98-107); Glucose 94 mg/dL (70-105); Osmolality,Calculated 288 (280-300); Sodium 140 mEq/L (136-145); eGFR For African Americans > 60 (> 60); eGFR For Non-African Americans > 60 (> 60)
[2021-08-16] MEDS: carvediloL 6.25 MG TABLET PO SCH ×2 (09:25→17:55)
[2021-08-16] MEDS: NIFEdipine XL (24 HR) 30 MG TAB.ER.24 PO SCH (09:25)
[2021-08-16] MEDS: PARoxetine 20 MG TABLET PO SCH (09:25)
[2021-08-16] MEDS: Magnesium Oxide 400 MG TABLET PO SCH (11:30)
[2021-08-16] MEDS: Potassium Chloride Elixir 20 MEQ/15 ML UDC PO SCH ×2 (11:30→20:45)
[2021-08-16] MEDS: Melatonin 3 MG TABLET PO SCH (20:42)
[2021-08-17 02:37] LABS: BUN/Creatinine Ratio 9 (6-26); Blood Urea Nitrogen 9 mg/dL (8-23); Calcium 8.2 mg/dL (8.6-10.3); Carbon Dioxide 26 mEq/L (23-29); Chloride 107 mEq/L (98-107); Glucose 88 mg/dL (70-105); Osmolality,Calculated 290 (280-300); Potassium 3.7 mEq/L (3.5-5.1); Sodium 141 mEq/L (136-145); eGFR For African Americans > 60 (> 60); eGFR For Non-African Americans > 60 (> 60)
[2021-08-17] MEDS: Insulin LISPRO 300 UNITS/3 ML VIAL SUBQ SCH ×3 (07:43→17:33)
[2021-08-17] MEDS: Magnesium Oxide 400 MG TABLET PO SCH (08:17)
[2021-08-17] MEDS: PARoxetine 20 MG TABLET PO SCH (08:17)
[2021-08-17] MEDS: carvediloL 6.25 MG TABLET PO SCH ×2 (08:17→17:36)
[2021-08-17] MEDS: NIFEdipine XL (24 HR) 30 MG TAB.ER.24 PO SCH (08:17)
[2021-08-17] MEDS: Melatonin 3 MG TABLET PO SCH (20:53)
[2021-08-18] MEDS: carvediloL 6.25 MG TABLET PO SCH ×2 (07:44→16:49)
[2021-08-18] MEDS: NIFEdipine XL (24 HR) 30 MG TAB.ER.24 PO SCH (07:44)
[2021-08-18] MEDS: Magnesium Oxide 400 MG TABLET PO SCH (07:44)
[2021-08-18] MEDS: PARoxetine 20 MG TABLET PO SCH (07:45)
[2021-08-18] MEDS: Insulin LISPRO 300 UNITS/3 ML VIAL SUBQ SCH ×3 (08:04→16:47)
[2021-08-18] MEDS: Melatonin 3 MG TABLET PO SCH (19:34)
[2021-08-19] MEDS: NIFEdipine XL (24 HR) 30 MG TAB.ER.24 PO SCH (04:56)
[2021-08-19] MEDS: PARoxetine 20 MG TABLET PO SCH (08:00)
[2021-08-19] MEDS: carvediloL 6.25 MG TABLET PO SCH (08:00)
[2021-08-19] MEDS: Magnesium Oxide 400 MG TABLET PO SCH (08:00)
[2021-08-19 09:10] VITALS: BP 153/71; PULSE 58; TEMP 98.7; O2SAT 92
[2021-08-19] MEDS: Insulin LISPRO 300 UNITS/3 ML VIAL SUBQ SCH ×2 (09:22→12:01)
== END 2021-08-19 15:18 | disposition home health service (06) | DRG 241 ==
LOC: EMEROOARM 16:29 → ICNU 23:12 → SUATTDRO 08-08 00:22 → 3ANU 08-11 14:58
PROVIDERS: ADMIT Internal Medicine; ATTEND Internal Medicine